=== PATIENT | female | born 1955 | race Two or more races ===

== ENCOUNTER 2018-11-15 04:29 | Emergency (ER) | payer OTHER, MEDICAID ==
[~2018-11-15] VITALS: Ht 157.5 cm; Wt 80.3 kg
[2018-11-15 04:42] VITALS: BP 127/67
== END 2018-11-15 04:53 | disposition left against medical advice (07) ==
LOC: EDBD 04:29 → ER 04:32
DX: R42 Dizziness and giddiness (principal); Z53.21 Procedure and treatment not carried out due to patient leaving prior to being seen by health care provider